=== PATIENT | male | born 1975 | race Caucasian/White ===

== ENCOUNTER → 2017-07-01 | Outpatient (CLI) | payer BC ==
[~2017-07-01] MED LIST: CHOL100010 PO; CLB/200 PO; COLON HEALTH PO; DOCU-94 PO; DUTA0.5C PO; ESCI1TAB10 PO; FIBER PO; LEVO100T7 PO; OXYC-643 PO; OXYC7.5T65 PO; PHEN-775 PO; SULF800T23 PO
[2017-07-01 17:52] LABS: ALT/SGPT 56 U/L (12-78); BLOOD UREA NITROGEN 14 mg/dl (7-18); BUN/CREATININE RATIO 11.3 (10-20); CALCIUM 9.3 mg/dl (8.5-10.1); CARBON DIOXIDE 26 mmol/L (21-32); CHLORIDE 109 mmol/L (98-107); GLUCOSE 88 mg/dl (70-99); SODIUM 140 mmol/L (136-145)
[2017-07-01 17:57] LABS: ALB/GLOB RATIO 1.2 (0.9-2); ALKALINE PHOSPHATASE 76 U/L (45-117); AST/SGOT 34 U/L (15-37); PROSTATE SPECIFIC ANTIGEN 0.509 ng/ml (0.000-4.000)
== END | disposition home or self-care (01) ==
LOC: C.LABPVFM 14:24
PROVIDERS: ATTEND Nurse Practitioner
DX: Z00.00 Encounter for general adult medical examination without abnormal findings (principal); R82.2 Biliuria; N41.9 Inflammatory disease of prostate, unspecified; R10.30 Lower abdominal pain, unspecified

== ENCOUNTER → 2017-08-04 | Outpatient (CLI) | payer BC ==
[~2017-08-04] MED LIST changes: +OPTIRAY 320 IV PRN
--- NOTE | 2017-08-04 09:52 | DIAGNOSTIC IMAGING REPORT ---
CT UROGRAM CLINICAL HISTORY: Microscopic hematuria. COMPARISON STUDY: Abdominal CT dated 02/28/2016. TECHNIQUE: Before and following the IV administration of 93 cc of Optiray 320, CT urogram of the abdomen and pelvis is performed from the lung bases to the proximal femora. Images are reviewed in the axial, sagittal, and coronal planes. IV contrast was administered without complication. A dose lowering technique was utilized adhering to the principles of ALARA. CT DOSE: 2133.50 mGycm FINDINGS: Lung bases: The heart is normal in size and without pericardial effusion. The lung bases are clear. Liver: The contrast-enhanced liver is normal in size and contour. The liver demonstrates diffusely diminished attenuation consistent with hepatic steatosis. Fatty sparing is seen adjacent to gallbladder fossa. There is no intrahepatic biliary ductal dilatation. The hepatic veins and portal veins are patent. Gallbladder: Unremarkable. Spleen: Normal in size and attenuation. Pancreas: Unremarkable. Adrenal glands: A 14 mm right adrenal nodule meets CT criteria for a fat-containing adenoma. The left adrenal gland is normal in appearance. Kidneys and ureters: The contrast enhanced kidneys are normal in size and without hydronephrosis. There is a punctate nonobstructing calculus in the left lower pole. No right renal calculi are identified on the unenhanced images. The kidneys enhance and excrete symmetrically. A 10 mm cortical hypodensity in the interpolar right kidney likely represents a cyst but is too small for definitive characterization. There is no enhancing renal cortical mass lesion identified. There is no evidence of urothelial lesion within the renal pelvis bilaterally or along the course of either ureter. Abdominal vasculature: The abdominal aorta is normal in course and caliber noting mild but age advanced atherosclerotic calcification. Bowel: The small bowel and colon are normal in course and caliber. The appendix is well-visualized and normal. Peritoneum: There is no intraperitoneal free air or abdominal ascites. There is a small fat-containing umbilical hernia. Lymphadenopathy: None. Pelvic viscera: There is significant and asymmetric wall thickening identified involving the left wall of the bladder. This is best seen on axial image #394 and measures up to 2.1 cm in thickness. This approaches the left trigone. A tiny irregular diverticulum is suggested. The prostate and seminal vesicles are normal as visualized. Skeletal structures: No lytic or blastic bony lesions are seen. Posterior disc bulge is noted at L4-L5 and L5-S1. Mild sclerotic degenerative change is present in the right sacroiliac joint. IMPRESSION: 1. There is significant and asymmetric thickening involving the left wall of the bladder. 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 Follow-up with urology is recommended. 2. No enhancing renal cortical mass is identified. There is no evidence of urothelial lesion involving the renal pelvis bilaterally or the ureters. 4. There is a punctate nonobstructing left renal calculus. 5. There is mild but age advanced atherosclerotic calcification of the abdominal aorta. 6. Hepatic steatosis. Electronically signed by: Luis Alfredo Avalos M.D. 08/04/2017 9:50 AM Dictated Date/Time: 08/04/2017 9:33 AM
== END | disposition home or self-care (01) ==
LOC: C.CTS 08:40
PROVIDERS: ATTEND Urology
DX: R31.29 Other microscopic hematuria (principal)

== ENCOUNTER → 2017-08-24 | Outpatient (CLI) | payer BC ==
[~2017-08-24] MED LIST changes: -OPTIRAY 320 IV PRN
[2017-08-24 13:13] LABS: BASO % 0.5 %; BASO ABS # 0.04 K/uL (0-0.2); COMPLETE YES; EOS % 2.8 %; HEMATOCRIT 49.4 % (42-52); IG% 0.1 %; LYMPH % 28.6 %; LYMPH ABS # 2.11 K/uL (1.2-3.4); MEAN CELL VOLUME 98.8 fL (80-100); MEAN CORPUSCULAR HGB CONC 34.4 g/dl (32-36); MEAN PLATELET VOLUME 10.2 fL (7.4-10.4); MONO % 8.3 %; NEUT % 59.7 %; PLATELET COUNT 249 K/uL (130-400); WHITE BLOOD COUNT 7.38 K/uL (4.8-10.8)
[2017-08-24 13:45] LABS: BLOOD UREA NITROGEN 13 mg/dl (7-18); BUN/CREATININE RATIO 13.4 (10-20); CARBON DIOXIDE 28 mmol/L (21-32); CHLORIDE 104 mmol/L (98-107); GLUCOSE 88 mg/dl (70-99); SODIUM 138 mmol/L (136-145)
== END | disposition home or self-care (01) ==
LOC: C.LAB 11:51
PROVIDERS: ATTEND Urology
DX: R31.29 Other microscopic hematuria (principal)

== ENCOUNTER → 2017-08-26 | Day surgery (SDC) | payer BC ==
[2017-08-24 15:40] VITALS: BMI 31.0
[~2017-08-26] VITALS: Ht 190.5 cm; Wt 113.6 kg
[~2017-08-26] MED LIST changes: +ALBUTEROL HFA INHALER 8.5 GM INH ONE; +ATROPINE SULFATE 0.1 MG/ML 5ML SYR IV PRN; +BELLADONNA/OPIUM SUPP 60 MG SUPP PR ONE; -CHOL100010 PO; +CIPROFLOXACIN / D5W 400 MG IV SCH; -COLON HEALTH PO; +DEXAMETHASONE SOD INJ 4 MG/ML VIAL ONE; +EpHEDrine SULFATE INJ 50 MG/ML AMP IV PRN; +FENTANYL CITRATE INJ 50 MCG/1 ML 2 ML VIAL IV PRN; +FENTANYL CITRATE INJ 50 MCG/1 ML 2 ML VIAL ONE; -FIBER PO; +GENTAMICIN INJ 120 MG in DEXTROSE 5% 100ML 100 ML IV SCH; +GLYCOPYRROLATE INJ 0.2 MG/ML VIAL ONE; +HYDROmorphone INJ 1 MG/ML SYR IV PRN; +HYDROmorphone INJ 1 MG/ML SYR ONE; +LACTATED RINGER'S 1000ML 1,000 ML IV SCH; +LIDOCAINE HCL 2% 2 ML VIAL (20MG/ML) ONE; +LORAZEPAM 2 MG/ML 1 ML VIAL ONE; +LORAZEPAM INJ 1 MG in SYRINGE 0.5 ML IV PRN; +MEPERIDINE HCL 25 MG/ML CARP IV PRN; +MEPERIDINE HCL 50 MG/ML CARP ONE; +MIDAZOLAM HCL 1 MG/ML 2ML VIAL ONE; +NEOSTIGMINE METHYLSULFATE 5 MG/5 ML SYR ONE; +ONDANSETRON INJ 2 MG/ML 2 ML VIAL IV PRN; +ONDANSETRON INJ 2 MG/ML 2 ML VIAL ONE; +OXYCODONE/ACETAMINOPHEN 5-325 TAB ONE; +OXYCODONE/ACETAMINOPHEN 5-325 TAB PO PRN; +PHENAZOPYRIDINE HCL 200 MG TAB PO PRN; +PROPOFOL IV EMULSION 10 MG/ML 20 ML VIAL IV ONE; +ROCURONIUM BROMIDE 10 MG/ML 5 ML VIAL IV ONE
[2017-08-26 05:37] VITALS: BP 152/92; PULSE 74; TEMP 36.7; O2SAT 98; Ht 190.5 cm; Wt 113.6 kg
--- NOTE | 2017-08-26 07:03 | History & Physical Bridge Note ---
H&P Re-Evaluation Bridge Note: I have examined the patient, reviewed the History & Physical and in the interval since the performance of the History & Physical I have noted the following changes of clinical significance: No changes noted
--- NOTE | 2017-08-26 07:49 | Discharge Instructions ---
Discharge Instructions Date of Service Aug 26, 2017. Admission Reason for Admission: Abnormal Cystoscopy Discharge Discharge Diagnosis / Problem: Abnormal cystoscopy s/p TURBT / fulguration Discharge Goals Goal(s): Improve disease control, Diagnostic testing, Therapeutic intervention Activity Recommendations Activity Limitations: as noted below Lifting Limitations: no more than 25 pounds, gradually increase as tolerated Exercise/Sports Limitations: rest today, gradually increase as tolerated May Resume Sexual Activity: when tolerated Shower/Bathe: no limitations Driving or Machine Use: resume 1 day after discharge . Instructions / Follow-Up Instructions / Follow-Up In office as scheduled for pathology discussion Discharge Diet Recommended Diet: Regular Diet (good fluid intake) Procedures Procedures Performed: Transurethral Resection of Bladder Tumor Pending Studies Studies pending at discharge: yes List of pending studies: Pathology report Medical Emergencies . Who to Call and When: Medical Emergencies: If at any time you feel your situation is an emergency, please call 911 immediately. . Non-Emergent Contact Non-Emergency issues call your: Urologist Call Non-Emergent contact if: you have a fever, temperature is above 101, your pain is not controlled, your pain is worsening, your pain is unusual for you, your pain is concerning you, you have any medication questions . . "Provider Documentation" section prepared by Hilton Aguilar. . VTE Core Measure Inpt VTE Proph given/why not?: SCD's [place] Drug Monitoring Program Search Results: patient reviewed within database, see additional documentation (sole only Rx from our service 6 days ago - refill provided seen ongoing pain / postop discomfort)
--- NOTE | 2017-08-26 07:51 | [facility] Post Operative Brief Note ---
Immediate Operative Summary Operative Date Aug 26, 2017. Pre-Operative Diagnosis Hematuria, Abnormal cystoscopy Post-Operative Diagnosis same Procedure(s) Performed Transurethral Resection of Bladder Tumor Surgeon Dr. Silva Aguilar Timing Machine Operator Surgeon(s) none Estimated Blood Loss 0 ml Findings Bullous / edematous involvement of the left bladder wall resected and fulgurated , UO clear Specimens a. left bladder lesion Drains 18 fr sandra 10 cc H2O Anesthesia GALMA Complication(s) None Disposition Recovery Room / PACU
--- NOTE | 2017-08-26 07:54 | [facility] Operative Report ---
Operative Report Operative Date Aug 26, 2017. Pre-Operative Diagnosis Hematuria, Abnormal cystoscopy Post-Operative Diagnosis same Procedure(s) Performed Transurethral Resection of Bladder Tumor, 3 cm on left lateral wall Surgeon Dr. Silva Aguilar Circulation Supervisor Surgeon(s) none Estimated Blood Loss 0 ml Findings Bullous / edematous involvement of the left bladder wall resected and fulgurated , UO clear Specimens a. left bladder lesion Drains 18 fr sandra 10 cc H2O Anesthesia GALMA Complication(s) None Disposition Recovery Room / PACU Indications 42-year-old male with a history of pelvic pain and hematuria has undergone an office cystoscopy earlier this week. This demonstrated an abnormality of the left bladder wall, papillary/edematous tissue not within normal limits. Seen the patient's history of smoking in this indeterminate anatomy transurethral resection of this tissue for diagnosis and possible therapy of his pain is planned. Please see H&P for further details. Description of Procedure Patient was properly identified and brought into the operative suite after identification of appropriate consent of the chart. General anesthesia with laryngeal mask was initiated and patient was prepped and draped in standard fashion for this procedure. Full timeout procedure was followed. 22 [place] rigid cystoscope was passed into the bladder direct visualization demonstrated a mildly obstructive prostate gland with no structures in the urethra. Within the bladder mild trabeculation was noted. Ureteral orifices were identified on both sides and noted to be clear of the patient's left-sided mucosal abnormality. Edematous, papillary mass on the left-hand wall, approximately 3 cm in size was appreciated. Cold cup biopsies were taken from the area with these were felt to be inadequate for pathology. Cystoscope was removed and a 27 [place] continuous flow resectoscope was introduced. Using a bipolar loop the abnormal tissue was resected with no evidence of perforation or significant thinning of the bladder wall. Bipolar button was used to fulgurate any remaining areas of abnormal mucosa. After this was complete excellent hemostasis appreciated with no evidence of residual abnormal tissue. Ureteral orifice was noted to be spared as planned. Bladder was drained and noted to be free of any residual tissue. Resectoscope was removed. 18 [place] Sandra catheter was placed for a short period of bladder rest. Belladonna and opium suppository was provided for postoperative analgesia. Anesthesia was reversed patient's transient recovery room in stable condition. Follow-up care: Patient will be discharged home after a trial of void today. Prescription for Bactrim, Percocet refill, Pyridium and Colace provided for postoperative analgesia and antibiotic coverage. Patient is instructed to contact us should he note any fevers, chills, nausea, vomiting or other significant difficulties in the postoperative period. I attest to the content of the Intraoperative Record and any orders documented therein. Any exceptions are noted below.
[2017-08-26 09:10] VITALS: BP 137/82; PULSE 83; TEMP 36.8; O2SAT 93
[2017-08-26 09:39] VITALS: BP 138/73; PULSE 84; O2SAT 93
--- NOTE | 2017-08-26 09:43 | Anesthesiology Progress Note ---
Anesthesia Post Op Note Date & Time Aug 26, 2017 at 09:43 Vital Signs Pain Intensity: 8 Vital Signs Past 12 Hours Date Time Temp Pulse Resp B/P (MAP) Pulse Ox O2 Delivery O2 Flow Rate FiO2 08/26/17 09:39 84 16 138/73 93 Room Air 08/26/17 09:10 36.8 83 16 137/82 93 Room Air 08/26/17 09:05 36.4 73 16 131/83 93 Nasal Cannula 2 Oxymask 08/26/17 08:55 79 14 134/92 93 Nasal Cannula 2 Oxymask 08/26/17 08:45 68 14 160/99 96 Nasal Cannula 2 Oxymask 08/26/17 08:35 75 12 139/95 90 Room Air Oxymask 08/26/17 08:25 77 13 154/82 100 Room Air Oxymask 08/26/17 08:15 72 11 161/99 100 Oxymask 10 08/26/17 08:05 75 14 164/93 99 Oxymask 10 08/26/17 07:58 36.2 99 20 151/99 96 Oxymask 10 08/26/17 05:37 36.7 74 20 152/92 (112) 98 Room Air Notes Mental Status: alert / awake / arousable, participated in evaluation Pt Amnestic to Procedure: Yes Nausea / Vomiting: adequately controlled Pain: adequately controlled Airway Patency, RR, SpO2: stable & adequate BP & HR: stable & adequate Hydration State: stable & adequate Anesthetic Complications: no major complications apparent
[2017-08-26 10:10] VITALS: BP 130/80; PULSE 86; TEMP 36.8; O2SAT 93
[2017-08-26 10:40] VITALS: BP 130/71; PULSE 76; TEMP 36.8; O2SAT 93
== END | disposition home or self-care (01) ==
LOC: C.ACU 05:14
PROVIDERS: ATTEND Urology
DX: C67.9 Malignant neoplasm of bladder, unspecified (principal); N41.9 Inflammatory disease of prostate, unspecified; E03.9 Hypothyroidism, unspecified; K64.8 Other hemorrhoids; Z80.0 Family history of malignant neoplasm of digestive organs; Z82.49 Family history of ischemic heart disease and other diseases of the circulatory system; Z84.1 Family history of disorders of kidney and ureter; Z80.51 Family history of malignant neoplasm of kidney; Z80.42 Family history of malignant neoplasm of prostate; F17.200 Nicotine dependence, unspecified, uncomplicated

== ENCOUNTER → 2017-09-23 | Outpatient (CLI) | payer BC ==
[~2017-09-23] MED LIST changes: -ALBUTEROL HFA INHALER 8.5 GM INH ONE; -ATROPINE SULFATE 0.1 MG/ML 5ML SYR IV PRN; -BELLADONNA/OPIUM SUPP 60 MG SUPP PR ONE; -CIPROFLOXACIN / D5W 400 MG IV SCH; -DEXAMETHASONE SOD INJ 4 MG/ML VIAL ONE; -DOCU-94 PO; -EpHEDrine SULFATE INJ 50 MG/ML AMP IV PRN; -FENTANYL CITRATE INJ 50 MCG/1 ML 2 ML VIAL IV PRN; -FENTANYL CITRATE INJ 50 MCG/1 ML 2 ML VIAL ONE; -GENTAMICIN INJ 120 MG in DEXTROSE 5% 100ML 100 ML IV SCH; -GLYCOPYRROLATE INJ 0.2 MG/ML VIAL ONE; -HYDROmorphone INJ 1 MG/ML SYR IV PRN; -HYDROmorphone INJ 1 MG/ML SYR ONE; -LACTATED RINGER'S 1000ML 1,000 ML IV SCH; -LIDOCAINE HCL 2% 2 ML VIAL (20MG/ML) ONE; -LORAZEPAM 2 MG/ML 1 ML VIAL ONE; -LORAZEPAM INJ 1 MG in SYRINGE 0.5 ML IV PRN; -MEPERIDINE HCL 25 MG/ML CARP IV PRN; -MEPERIDINE HCL 50 MG/ML CARP ONE; -MIDAZOLAM HCL 1 MG/ML 2ML VIAL ONE; -NEOSTIGMINE METHYLSULFATE 5 MG/5 ML SYR ONE; -ONDANSETRON INJ 2 MG/ML 2 ML VIAL IV PRN; -ONDANSETRON INJ 2 MG/ML 2 ML VIAL ONE; -OXYCODONE/ACETAMINOPHEN 5-325 TAB ONE; -OXYCODONE/ACETAMINOPHEN 5-325 TAB PO PRN; -PHEN-775 PO; +PHEN-876 PO; -PHENAZOPYRIDINE HCL 200 MG TAB PO PRN; -PROPOFOL IV EMULSION 10 MG/ML 20 ML VIAL IV ONE; -ROCURONIUM BROMIDE 10 MG/ML 5 ML VIAL IV ONE; -SULF800T23 PO; +TAMS0.4C38 PO
== END | disposition home or self-care (01) ==
LOC: C.LABPVFM 14:49
PROVIDERS: ATTEND Nurse Practitioner
DX: E03.9 Hypothyroidism, unspecified (principal)